=== PATIENT | male | born 1960 | race Caucasian/White ===

== ENCOUNTER → 2017-09-03 | Outpatient (CLI) | payer OTHER, BC | LOC: COL.RAD 13:59 | DX: M25.512 Pain in left shoulder (principal) | CPT/HCPCS: J3301; Q9967 ==

== ENCOUNTER 2019-10-28 16:30 | Outpatient (RCR) | payer OTHER, BC | END 2019-11-12 11:08 | disposition home or self-care (01) | LOC: WSC 16:30 | DX: M47.22 Other spondylosis with radiculopathy, cervical region (principal); M47.12 Other spondylosis with myelopathy, cervical region; Z98.1 Arthrodesis status; M50.90 Cervical disc disorder, unspecified, unspecified cervical region ==

== ENCOUNTER → 2021-03-30 | Outpatient (CLI) | payer OTHER | LOC: COL.RAD 08:50 | DX: M25.512 Pain in left shoulder (principal) | CPT/HCPCS: J3301; Q9967 ==